=== PATIENT | female | born 1980 | race Caucasian/White ===

== ENCOUNTER 2017-08-06 21:02 | Emergency (ER) | payer OTHER ==
[2015-03-19 08:56] VITALS: Wt 74.4 kg
[~2017-08-06 21:02] MED LIST: BENZ57AE; DOCU240C67 PO; IBUP-1784 PO; IBUP600T22 PO; IBUP800T37 PO; LANO56CR3 TP; Lanolin TP; METH0.2T6 PO; MULT-1038 PO; NORG1TAB82 PO; PNV1TABL70 PO; TRAM-420 PO; TRAM-627 PO
--- NOTE | 2017-08-06 21:11 | ER Report ---
History and Physical Time Seen By MD: 21:11 HPI/ROS CHIEF COMPLAINT: Vaginal prolapse HISTORY OF PRESENT ILLNESS: 36 year-old female G2, P2 at the end of her menstrual cycle is using a menstrual cap. Tonight she noted some excess tissue hanging out. She had her take a look and they became concerned. Patient presents to the ER. She denies abdominal pain, vaginal discharge, urinary burning, fever, chills or discomfort. Allergies: Coded Allergies: adhesive (Verified Allergy, Intermediate, RASH, HIVES, 04/24/15) povidone-iodine (Verified Allergy, Intermediate, RASH, HIVES, 04/24/15) soap (Verified Allergy, Intermediate, RASH, HIVES, 04/24/15) codeine (Verified Allergy, Mild, 05/29/09) diazepam (Verified Allergy, Mild, 12/30/16) hydrocodone bit (Verified Allergy, Mild, NAUSEA/VOMITING, 12/19/12) oxycodone HCl (Verified Allergy, Mild, NAUSEA/VOMITING, 12/19/12) Home Meds Active Scripts Ibuprofen (IBUPROFEN) 800 Mg Tablet, 1 TAB PO Q8H Y for pain, #30 TAB 0 Refills Prov:GILBERTO RIVERA MD 01/26/17 Discontinued Scripts Tramadol Hcl (TRAMADOL HCL) 50 Mg Tablet, 50-100 MG PO Q4-6H Y for pain, #20 TAB 0 Refills Prov:GILBERTO RIVERA MD 01/26/17 Reviewed Nurses Notes: Yes Old Medical Records Reviewed: Yes Hx Smoking: No Smoking Status: Never Smoker Exposure to Second Hand Smoke?: No Hx Substance Use Disorder: No Hx Alcohol Use: No Constitutional Vital Sign - Last 24 Hours 08/06/17 08/06/17 08/06/17 08/06/17 21:14 21:15 21:17 21:32 Pulse 60 66 63 Resp 16 B/P (MAP) 114/71 114/71 (85) Pulse Ox 98 98 99 O2 Delivery Room Air 08/06/17 08/06/17 08/06/17 08/06/17 21:47 22:02 22:17 22:22 Pulse 67 63 67 Pulse Ox 98 98 98 98 08/06/17 22:55 Resp 16 B/P (MAP) 102/65 (77) Pulse Ox 98 O2 Delivery Room Air Physical Exam General appearance: Respiratory: Chest is non tender, lungs are clear to auscultation. Cardiac: Regular rate and rhythm Abdomen, bowel sounds are intact. Abdomen is soft, no masses or tenderness Pelvic: Normal vaginal mucosa with slight dark blood tinging. Cervix appears normal. There is no excess tissue or masses noted. On standing. Patient notes that tissue is hanging out. I think her uretera appears partially prolapsed. There is also a generous left labium minora hanging down. There is a tag of tissue noted on the posterior vaginal wall from her repair of a posterior vaginal wall tear during delivery. DIFFERENTIAL DIAGNOSIS: After history and physical exam differential diagnosis was considered for urethral prolapse, cystocele, rectocele. Medical Decision Making ED Course/Re-evaluation ED Course Patient was admitted to an examination room. H&P was done. The differential diagnoses was considered. On clinical examination. Patient has a normal examination. Patient advised to follow-up with Dr. Da Silva for evaluation. Decision to Disposition Date: Aug 06, 2017 Decision to Disposition Time: 22:49 Depart Departure Latest Vital Signs Vital Signs Date Time Temp Pulse Resp B/P (MAP) Pulse Ox O2 Delivery O2 Flow Rate FiO2 08/06/17 22:55 16 102/65 (77) 98 Room Air 08/06/17 22:17 67 Core Temperature (Celsius): 37.00 Impression: Primary Impression: Urethral prolapse Condition: Improved Disposition: HOME OR SELF-CARE Referrals: DEV DA SILVA MD (PCP) Patient Instructions: GENERAL ER DISCHARGE INSTRUCTIONS Additional Instructions: Follow-up with Dr. Da Silva for an evaluation RICK GONZALEZ DO Aug 06, 2017 21:11
[2017-08-06 22:55] VITALS: BP 102/65
== END 2017-08-06 22:55 | disposition home or self-care (01) ==
LOC: ER 21:29
DX: N81.0 Urethrocele (principal)
CPT/HCPCS: 99284

== ENCOUNTER → 2017-08-19 | Outpatient (REF) | payer OTHER ==
[2015-03-19 08:56] VITALS: BMI 34.6
== END ==
LOC: ZZSENDIN 13:01
PROVIDERS: ATTEND Obstetrics & Gynecology
DX: N92.5 Other specified irregular menstruation (principal)
CPT/HCPCS: 83520; 84146; 84443

== ENCOUNTER → 2017-11-14 | Outpatient (CLI) | payer OTHER ==
[2015-03-19 08:56] VITALS: BMI 34.6
== END ==
LOC: LAB 14:46
PROVIDERS: ATTEND Obstetrics & Gynecology Reproductive Endocrinology
DX: Z32.00 Encounter for pregnancy test, result unknown (principal)
CPT/HCPCS: 36415; 82670; 84144; 84702

== ENCOUNTER → 2017-11-16 | Outpatient (CLI) | payer OTHER ==
[2015-03-19 08:56] VITALS: BMI 34.6
== END ==
LOC: LAB 14:43
PROVIDERS: ATTEND Obstetrics & Gynecology Reproductive Endocrinology
DX: O09.811 Supervision of pregnancy resulting from assisted reproductive technology, first trimester (principal); Z13.29 Encounter for screening for other suspected endocrine disorder
CPT/HCPCS: 36415; 84443; 84702

== ENCOUNTER → 2017-11-28 | Outpatient (CLI) | payer OTHER ==
[2015-03-19 08:56] VITALS: BMI 34.6
[~2017-11-28] MED LIST changes: +AZIT-17 PO; +PREN-162 PO
[2017-11-28 15:51] LABS: PLATELET COUNT, AUTOMATED 256 K/uL (150-450)
== END ==
LOC: LAB 15:33
PROVIDERS: ATTEND Obstetrics & Gynecology
DX: Z34.91 Encounter for supervision of normal pregnancy, unspecified, first trimester (principal); R82.79 Other abnormal findings on microbiological examination of urine
CPT/HCPCS: 36415; 81001; 85025; 86592; 86762; 86850; 86900; 86901; 87088; 87340

== ENCOUNTER → 2017-12-01 | Outpatient (CLI) | payer OTHER ==
[2015-03-19 08:56] VITALS: BMI 34.6
[~2017-12-01] MED LIST changes: +PROG200C VA
== END ==
LOC: LAB 15:43
PROVIDERS: ATTEND Obstetrics & Gynecology
DX: O09.299 Supervision of pregnancy with other poor reproductive or obstetric history, unspecified trimester (principal)
CPT/HCPCS: 36415; 84144

== ENCOUNTER → 2017-12-13 | Outpatient (CLI) | payer OTHER ==
[2015-03-19 08:56] VITALS: BMI 34.6
== END ==
LOC: LAB 09:53
PROVIDERS: ATTEND Obstetrics & Gynecology
DX: O09.299 Supervision of pregnancy with other poor reproductive or obstetric history, unspecified trimester (principal)
CPT/HCPCS: 36415; 84144

== ENCOUNTER → 2018-03-09 | Outpatient (CLI) | payer OTHER ==
[2015-03-19 08:56] VITALS: BMI 34.6
[~2018-03-09] MED LIST changes: +AMOX-559 PO; +CHOL10005 PO; +FLUT16SP19 NS
--- NOTE | 2018-03-09 15:56 | RADIOLOGY IMAGING REPORT ---
FACILITY: [facility] PATIENT NAME: Florina Ballard : 1980 MR: [id number] V: [id number] EXAM DATE: ORDERING PHYSICIAN: GILBERTO RIVERA TECHNOLOGIST: Location: [facility] - [place], [place] Patient: Florina Ballard : 1980 Visit/Account:[id number] Date of Sevice: 03/09/2018 OB ANATOMICAL SURVEY HISTORY: anatomical survey COMPARISON: Comparison made to previous study of 01/10/2018 FINDINGS: Intrauterine gestations: 1 presentation: Transverse heart rate: 144 bpm Amniotic fluid volume: JOYA 19.6 cm; Largest amniotic fluid pocket 5.5 cm Placenta: Posterior and fundal No placenta previa or retroplacental hemorrhage. Uterus: Gravid, otherwise normal Maternal adnexa: Negative Cervix: 4.4 cm. Closed Gestational Parameters: BPD: 5.3 cm; 22 weeks/ 2 days HC: 19.3 cm; 21 weeks/ 4 days AC: 16.9 cm; 22 weeks/ 0 days FL: 3.7 cm; 21 weeks/ 5 days Average ultrasound age (AUA): 22 weeks/ 0 days Estimated weight (EFW): 451 grams +/- 66 grams. Fetus is in the 90th percentile based on LMP Anatomic Survey: Intracranial structures, 4-chamber heart, stomach, kidneys, urinary bladder, spine, 3-vessel cord and cord insertion are unremarkable. Two upper and two lower extremities visualized. IMPRESSION: IUP of 22 weeks zero days. EMILY of 07/13/2018. This correlates eight days ahead of the initial ultraso und on 12/13/2017 which had an EMILY calculated at 07/21/2018 Report Dictated By: Woodrow Awan MD at 03/09/2018 3:46 PM Report E-Signed By: Woodrow Awan MD at 03/09/2018 3:53 PM ALEJANDRAN:NICK
== END ==
LOC: RAD 10:14
PROVIDERS: ATTEND Obstetrics & Gynecology
DX: Z02.9 Encounter for administrative examinations, unspecified (principal)

== ENCOUNTER 2018-04-27 09:33 | Emergency (ER) | payer OTHER ==
[2015-03-19 08:56] VITALS: Wt 95.7 kg
[~2018-04-27 09:33] MED LIST changes: +BUTA1TAB14 PO
[2018-04-27] MEDS ORDERED: CEPH500T7 PO (10:48)
--- NOTE | 2018-04-27 10:58 | History & Physical ---
History of Present Illness Age of Patient: 37 Para or TPAL: 2 Estimated Gestational Age: 27 Chief Complaint Groin pain/abscess History of Present Illness Pt is a 37 y/o @ approximately 27 weeks gestation who presents to the ED with a cheif complaint of groin/leg pain. Pt reports she started to notice pain last night on her right thigh. Reports this has progressively gotten bigger and now is having difficulty walking or sitting with her legs together. Pt reports that she was able to get some drainage from her leg earlier this morning. Reports that she hasn't been able to get other fluid or discharge out since. Has had no fevers or chills. Swelling around the infected area. Pt reports good movement. No vaginal bleeding. No loss of amniotic fluid. History Obstetrical History: X 2 Past Medical History: Non contributory. Allergies: Coded Allergies: adhesive (Verified Allergy, Intermediate, RASH, HIVES, 04/24/15) povidone-iodine (Verified Allergy, Intermediate, RASH, HIVES, 04/24/15) soap (Verified Allergy, Intermediate, RASH, HIVES, 04/24/15) codeine (Verified Allergy, Mild, 05/29/09) diazepam (Verified Allergy, Mild, 12/30/16) hydrocodone bit (Verified Allergy, Mild, NAUSEA/VOMITING, 12/19/12) oxycodone HCl (Verified Allergy, Mild, NAUSEA/VOMITING, 12/19/12) Social History: , present and supportive. Lives with and 2 year old daughter. No noxious habits. Family History: Blood clots paternal grandmother FH: heart disease maternal grandma maternal grandfather FH: juvenile rheumatoid arthritis BROTHER OR SISTER FH: ovarian cancer MOTHER Osteoporosis FATHER Med Rec Home Meds Active Scripts Cephalexin 500 Mg Tab (KEFLEX 500 MG TAB) 500 Mg Tablet, 500 MG PO Q6H, #28 TAB 0 Refills Prov:KRISTY GIL DO 04/27/18 Butalb/Acetaminophen/Caff 50-325-40 Mg (FIORICET 50-325-40) 1 Each Tablet, 1-2 TAB PO Q6H PRN for headache, #30 TAB 1 Refill Prov:GILBERTO RIVERA MD 04/11/18 Fluticasone Prop 50 Mcg Ns (FLONASE 50 MCG NS) 16 Gm [place].susp, 2 SPRAYS NS QDAY, #1 BOT 1 Refill Prov:GILBERTO RIVERA MD 01/18/18 Reported Medications Cholecalciferol (Vitamin D3) (VITAMIN D3) 1,000 Unit Tablet, 1000 UNIT PO, TAB 02/07/18 Vit/Iron Fumarate/Fa ( TABLET) 1 Each Tablet, 1 EACH PO 11/28/17 Review of Systems All Systems Reviewed/Normal: Yes, Except as Noted Constitutional: No Fever, No Weight Loss, No Weight Gain, No Chills, No Night Sweats, No Other Neurological: No Syncope, No Confusion, No Weakness, No Dizziness, No Slurred Speech, No Other ENT: No Hearing Loss, No Sinus Congestion, No Sore Throat, No Ear Ache, No Tinnitus, No Other Cardiovascular: No Chest Pain, No Palpitations, No Orthostatic Hypotension, No Other Respiratory: No Shortness of Breath, No Cough, No Wheezing, No Other Gastrointestinal: No Nausea, No Vomiting, No Diarrhea, No Dysphagia, No Constipation, No Early Satiety, No Hematemesis, No Hematochezia, No Melena, No Abdominal Pain, No Other Genitourinary: Other (as noted in hpi) Musculoskeletal: Pain Psychiatric: No Depression, No Anxiety, No Other Exam General Exam Vital Signs Vital Signs Date Time Temp Pulse Resp B/P (MAP) Pulse Ox O2 Delivery O2 Flow Rate FiO2 04/27/18 10:02 98.3 89 18 132/83 95 Room Air General Apperance: Alert/Awake/No Acute Distress Neuro: No Gross deficits Eyes: Normal Extraocular Movement & Vison ENT: Normal Abdomen: Soft, Non-Tender, Non-Distended, Gravid - Non-Tender, Other Musculoskeletal: Other (area of induration approximately 2X 4 cm on the left thigh close to labia majora, minimal purulent discharge expressed. erythema around indurated area.) Extremities: No Cyanosis,Clubbing or Edema Integumentary: Skin Intact without Lesions or Rash Psychological: Alert & Oriented X3, Appropriate Mood & Affect Fetus Heart Tones: 155 Medical Decision Making Pre-Admit Course Medical Record Review: Yes VTE Prophylasis: Adult Deep Vein Thrombosis/Pulmonary: No Assessment and Plan QUALITY ASSURANCE GROUP LEADER Assessment: Stable Problems: (1) Groin abscess Assessment & Plan: Bedside incision and drainage with copious irrigation performed. Pt to be discharged home with Keflex. Follow up with [facility]. Bleeding and infection precautions given. KRISTY GIL DO Apr 27, 2018 10:58
[2018-04-27] MEDS ORDERED: CEPHALEXIN MONO 500 MG CAP PO ONE (11:10)
--- NOTE | 2018-04-27 11:17 | ER Report ---
History and Physical Time Seen By MD: 11:14 Hx. of Stated Complaint: PT BELIEVES SHE HAS AN ABSCESS ON THE INSIDE OF HER LEFT GROIN. HPI/ROS This patient is 27 weeks presents to the emergency department with an early abscess to her right inner thigh. No fever chills. No abdominal pain, no chest pain, and states she feels baby moving well. No other complaints other than the abscess in her thigh. Remainder of the 14 system rev: Yes Allergies: Coded Allergies: adhesive (Verified Allergy, Intermediate, RASH, HIVES, 04/24/15) povidone-iodine (Verified Allergy, Intermediate, RASH, HIVES, 04/24/15) soap (Verified Allergy, Intermediate, RASH, HIVES, 04/24/15) codeine (Verified Allergy, Mild, 05/29/09) diazepam (Verified Allergy, Mild, 12/30/16) hydrocodone bit (Verified Allergy, Mild, NAUSEA/VOMITING, 12/19/12) oxycodone HCl (Verified Allergy, Mild, NAUSEA/VOMITING, 12/19/12) Home Meds Active Scripts Cephalexin 500 Mg Tab (KEFLEX 500 MG TAB) 500 Mg Tablet, 500 MG PO Q6H, #28 TAB 0 Refills Prov:KRISTY GIL DO 04/27/18 Butalb/Acetaminophen/Caff 50-325-40 Mg (FIORICET 50-325-40) 1 Each Tablet, 1-2 TAB PO Q6H PRN for headache, #30 TAB 1 Refill Prov:GILBERTO RIVERA MD 04/11/18 Fluticasone Prop 50 Mcg Ns (FLONASE 50 MCG NS) 16 Gm [place].susp, 2 SPRAYS NS QDAY, #1 BOT 1 Refill Prov:GILBERTO RIVERA MD 01/18/18 Reported Medications Cholecalciferol (Vitamin D3) (VITAMIN D3) 1,000 Unit Tablet, 1000 UNIT PO, TAB 02/07/18 Vit/Iron Fumarate/Fa ( TABLET) 1 Each Tablet, 1 EACH PO 11/28/17 Reviewed Nurses Notes: Yes Old Medical Records Reviewed: Yes Hx Smoking: No Smoking Status: Never Smoker Exposure to Second Hand Smoke?: No Hx Substance Use Disorder: No Hx Alcohol Use: No Constitutional Vital Sign - Last 24 Hours 04/27/18 10:02 Temp 98.3 Pulse 89 Resp 18 B/P (MAP) 132/83 Pulse Ox 95 O2 Delivery Room Air Physical Exam General Appearance: The patient is alert, has no immediate need for airway protection and no current signs of toxicity. Eyes: Pupils equal and round no injection. Respiratory: Chest is non tender, lungs are clear to auscultation. Cardiac: regular rate and rhythm Gastrointestinal: Abdomen is gravis and non tender, FHTs in 150s Skin: Small fluctuant abscess to right inner thigh Medical Decision Making ED Course/Re-evaluation ED Course Right sided thigh abscess I&D'd in the ED by Dr. Gil. See Dr. Gil's note. Patient otherwise without complaints. Will d/c with RX for Keflex. Decision to Disposition Date: Apr 27, 2018 Decision to Disposition Time: 11:15 Depart Departure Latest Vital Signs Vital Signs Date Time Temp Pulse Resp B/P (MAP) Pulse Ox O2 Delivery O2 Flow Rate FiO2 04/27/18 10:02 98.3 89 18 132/83 95 Room Air Core Temperature (Celsius): 37.00 Impression: Primary Impression: Groin abscess Condition: Improved Disposition: HOME OR SELF-CARE Referrals: GILBERTO RIVERA MD (PCP) New Scripts Cephalexin 500 Mg Tab (KEFLEX 500 MG TAB) 500 Mg Tablet 500 MG PO Q6H, #28 TAB 0 Refills Prov: KRISTY GIL DO 04/27/18 Patient Instructions: Abscess (ED) RODERICK RODRIGUEZ MD Apr 27, 2018 11:17
[2018-04-27 11:20] VITALS: BP 108/61
[2018-04-27] MEDS ORDERED: CEPHALEXIN 500 MG CAP TH 2 CAP/BOTTLE PO SCH (12:00)
[2018-04-27] MEDS ORDERED: CEPHALEXIN 500 MG CAP TH 2 CAP/BOTTLE PO ONE (21:00)
== END 2018-04-27 11:28 | disposition home or self-care (01) ==
LOC: ER 10:14
DX: O26.892 Other specified pregnancy related conditions, second trimester (principal); L02.214 Cutaneous abscess of groin; Z3A.27 27 weeks gestation of pregnancy
CPT/HCPCS: 99284

== ENCOUNTER → 2018-05-02 | Outpatient (CLI) | payer OTHER ==
[2015-03-19 08:56] VITALS: BMI 34.6
[~2018-05-02] MED LIST changes: +CEPH500T7 PO
[2018-05-02 10:10] LABS: PLATELET COUNT, AUTOMATED 275 K/uL (150-450)
== END ==
LOC: LAB 08:24
PROVIDERS: ATTEND Obstetrics & Gynecology
DX: O09.529 Supervision of elderly multigravida, unspecified trimester (principal)
CPT/HCPCS: 36415; 82950; 85025

== ENCOUNTER → 2018-06-21 | Outpatient (CLI) | payer OTHER ==
[2015-03-19 08:56] VITALS: BMI 34.6
[~2018-06-21] MED LIST changes: +CALC-515 PO; +TRIA15OI20 TP
== END ==
LOC: LAB 07:55
PROVIDERS: ATTEND Obstetrics & Gynecology
DX: O09.523 Supervision of elderly multigravida, third trimester (principal); Z36.85 Encounter for antenatal screening for Streptococcus B
CPT/HCPCS: 87081

== ENCOUNTER 2018-07-06 22:28 | Outpatient (CLI) | payer OTHER ==
[2015-03-19 08:56] VITALS: Ht 172.7 cm
[2018-07-06] MEDS ORDERED: LR(*) 1000 ML BAG 1,000 ML IV PRN (22:29)
[2018-07-06] MEDS ORDERED: OXYTOCIN 30 UNIT/D5LR 500 ML 500 ML IV PRN (22:29)
[2018-07-06 22:49] VITALS: BP 128/73
[2018-07-06 23:20] VITALS: BP 128/71
== END 2018-07-06 23:45 | disposition home or self-care (01) ==
LOC: UNDOADMOB 22:28 → L&D 22:28 → OB 22:28 → INTOOBSV 22:28 → UNDODISOB 23:45 → L&D 23:45 → EDSTATUS 07-20 07:31
PROVIDERS: ATTEND Obstetrics & Gynecology
DX: O26.893 Other specified pregnancy related conditions, third trimester (principal); Z3A.37 37 weeks gestation of pregnancy
CPT/HCPCS: 59025; 84112; G0378; G0379; 99213

== ENCOUNTER 2018-07-17 20:45 | Inpatient (IN) | payer OTHER ==
[~2018-07-17] VITALS: Ht 172.7 cm; Wt 90.7 kg
[2018-07-17] MEDS ORDERED: LR(*) 1000 ML BAG 1,000 ML IV PRN (20:47)
[2018-07-17] MEDS ORDERED: OXYTOCIN 30 UNIT/D5LR 500 ML 500 ML ONE (21:13)
[2018-07-17] MEDS ORDERED: FAMOTIDINE(*) 20MG/50ML PREMIX 50 ML IVPB PRN ×2 (21:19→21:30)
[2018-07-17] MEDS ORDERED: ceFAZolin(*) 2GM/D5W 50ML 50 ML IVPB PRN (21:19)
[2018-07-17] MEDS ORDERED: OXYTOCIN 30 UNIT/D5LR 500 ML 500 ML IV PRN (21:19)
[2018-07-17] MEDS: LR(*) 1000 ML BAG 1,000 ML IV SCH ×2 (21:19→22:13)
[2018-07-17] MEDS ORDERED: FLUSH 10 ML SYR IVP PRN (21:20)
[2018-07-17] MEDS ORDERED: METOCLOPRAMIDE 10 MG/2 ML SDV IVP PRN (21:20)
[2018-07-17] MEDS ORDERED: cefOXitin/DEX(*) 2GM/50ML PREM 50 ML IVPB PRN (21:20)
[2018-07-17] MEDS ORDERED: LIDOCAINE/SOD BICARB 8.4% SYR SC PRN (21:20)
[2018-07-17] MEDS ORDERED: fentaNYL CITR 100 MCG/2 ML AMP IVP PRN (21:20)
[2018-07-17] MEDS ORDERED: LIDOCAINE 1% LOCAL 300 MG/30ML INJ PRN (21:20)
[2018-07-17] MEDS ORDERED: ONDANSETRON 4 MG/2 ML VIAL IVP PRN (21:30)
[2018-07-17] MEDS ORDERED: ACETAMINOPHEN 500 MG TAB PO PRN (21:30)
[2018-07-17] MEDS ORDERED: CALCIUM CARBONATE 500 MG CHEW PO PRN (21:30)
[2018-07-17] MEDS ORDERED: LIDO/EPI 2% MPF 1:200,000 20ML EPI PRN (21:35)
[2018-07-17] MEDS ORDERED: BUPIVACAINE 0.25% MPF INJ EPI PRN (21:35)
[2018-07-17] MEDS ORDERED: PENICILLIN G 5 MILLUN/100 ML 100 ML IVPB ONE (21:35)
[2018-07-17] MEDS ORDERED: BUPIVACAINE 0.5% INJ 30ML VIAL EPI PRN (21:35)
[2018-07-17] MEDS ORDERED: fentaNYL CITR 100 MCG/2 ML AMP IT PRN (21:35)
[2018-07-17] MEDS ORDERED: LIDOCAINE/PF 2% 200MG/10ML AMP 200 MG/10 ML AMPUL EPI PRN (21:35)
[2018-07-17] MEDS ORDERED: ePHEDrine 25 MG/5 ML DISP.SYR IVP PRN (21:35)
[2018-07-17] MEDS ORDERED: FENTANYL/ROPIVACAINE 100 ML BAG EPI PRN (21:35)
[2018-07-17] MEDS ORDERED: EPIDURAL KEYS XX PRN (21:35)
[2018-07-17 21:38] LABS: PLATELET COUNT, AUTOMATED 258 K/uL (150-450)
[2018-07-17 22:00] VITALS: BP 126/72; Ht 172.7 cm; Wt 90.7 kg
--- NOTE | 2018-07-17 22:48 | History & Physical ---
History of Present Illness EDC per U/S: Jul 21, 2018 Estimated Gestational Age: 39.2 Chief Complaint Labor History of Present Illness 37yo at 39w2d presents in spontaneous labor. She denies vaginal bleeding or loss of fluid. Positive movement. More regular contractions this afternoon and was 5cm on arrival. care by IMG. complicated by AMA with a normal [id number] and reassuring anatomical ultrasound. She is GBS positive. History Patient's Blood Type: AB Positive Rubella Status: Immune Group B Strep Screen: Positive Obstetrical History: G1: 40wk G2: 38wk G3: 8wk ectopic G4: 9wk SAB G5: Current Past Medical History: See PNR Allergies: Coded Allergies: adhesive (Verified Allergy, Intermediate, RASH, HIVES, 04/24/15) povidone-iodine (Verified Allergy, Intermediate, RASH, HIVES, 04/24/15) soap (Verified Allergy, Intermediate, RASH, HIVES, 04/24/15) codeine (Verified Allergy, Mild, 05/29/09) diazepam (Verified Allergy, Mild, 12/30/16) hydrocodone bit (Verified Allergy, Mild, NAUSEA/VOMITING, 12/19/12) oxycodone HCl (Verified Allergy, Mild, NAUSEA/VOMITING, 12/19/12) Social History: , present and supportive. Lives with and 2 children. No T/E/D. Family History: Blood clots paternal grandmother FH: heart disease maternal grandma maternal grandfather FH: juvenile rheumatoid arthritis BROTHER OR SISTER FH: ovarian cancer MOTHER Osteoporosis FATHER Med Rec Home Meds Active Scripts Triamcinolone Acetonide 0.1% Oint 15 Gm Tube (TRIAMCINOLONE ACETONIDE 0.1% 15 GM TUBE) 15 Gm Oint...g., 15 GM TP BID, #1 TUBE 0 Refills Prov:GILBERTO RIVERA MD 06/07/18 Reported Medications Calcium Carbonate (TUMS) 200 Mg Tab.chew, 200 MG PO, TAB.CHEW 05/18/18 Cholecalciferol (Vitamin D3) (VITAMIN D3) 1,000 Unit Tablet, 1000 UNIT PO, TAB 02/07/18 Vit/Iron Fumarate/Fa ( TABLET) 1 Each Tablet, 1 EACH PO 11/28/17 Review of Systems Constitutional: No Fever Neurological: No Syncope Eyes: No Vision Change Cardiovascular: No Chest Pain Respiratory: No Shortness of Breath Gastrointestinal: No Nausea, No Vomiting, No Diarrhea Genitourinary: No Dysuria Musculoskeletal: No Pain Psychiatric: No Depression, No Anxiety Exam General Exam Vital Signs VS reviewed General Apperance: Alert/Awake/No Acute Distress Neuro: No Gross deficits Eyes: Normal Extraocular Movement & Vison Cardiovascular: Regular Rate and Rhythm Respiratory: No Respiratory Distress Abdomen: Gravid - Non-Tender : Normal Musculoskeletal: No Weakness/Pain Extremities: No Cyanosis,Clubbing or Edema Integumentary: Skin Intact without Lesions or Rash Psychological: Alert & Oriented X3, Appropriate Mood & Affect Cervical Dialation: 6 Cervical Effacement (%): 70 Cervical Consistency: Soft Cervical Position: Mid Station: -2 Presentation: Vertex Uterine Contractions(Q min): 3 Uterine Contraction Strength: Moderate UC Resting Tone: Soft Fetus Feeling Movement?: Yes FHT Category: I Medical Decision Making Data Points Result Diagram: 07/17/182128 Pre-Admit Course Medical Record Review: Yes VTE Prophylasis: Adult Deep Vein Thrombosis/Pulmonary: No Pharmacological Contraindicati: Surgical Contraindication Mechanical Contraindications: Pt at Low Risk for VTE Assessment and Plan Problems: (1) Spontaneous onset of labor Assessment & Plan: 37yo at 39w2d presents in spontaneous labor. GBS pos itive, PCN protocol is started. Epidural in. Anticipate . (2) 39 weeks gestation of GILBERTO RIVERA MD Jul 17, 2018 22:48
--- NOTE | 2018-07-17 22:59 | Anesthesia OB Pre-Anes Eval ---
History of Present Illness Anesthesia Start Date: Jul 17, 2018 Anesthesia Start Time: 21:40 OB Anesthesia Diagnosis: spontaneous labor Complications: None known EDC: Jul 21, 2018 : 5 Para: 2 Pain Ratin Heart Tones: WNL Result Diagram: 07/17/182128 Height (Inches): 68 Weight (Pounds): 211 BMI (kg/m2): 38 Past Medical History Medical History: no pertinent history Surgical History: other (Retained placenta) Previous Anesthesia: general, epidural Attended Childbirth Classes?: No Hx Anesthesia Reactions: No Hx Family Anesthesia Reaction: No Home Meds Active Scripts Triamcinolone Acetonide 0.1% Oint 15 Gm Tube (TRIAMCINOLONE ACETONIDE 0.1% 15 GM TUBE) 15 Gm Oint...g., 15 GM TP BID, #1 TUBE 0 Refills Prov:GILBERTO RIVERA MD 06/07/18 Reported Medications Calcium Carbonate (TUMS) 200 Mg Tab.chew, 200 MG PO, TAB.CHEW 05/18/18 Cholecalciferol (Vitamin D3) (VITAMIN D3) 1,000 Unit Tablet, 1000 UNIT PO, TAB 02/07/18 Vit/Iron Fumarate/Fa ( TABLET) 1 Each Tablet, 1 EACH PO 11/28/17 Allergies: Coded Allergies: adhesive (Verified Allergy, Intermediate, RASH, HIVES, 04/24/15) povidone-iodine (Verified Allergy, Intermediate, RASH, HIVES, 04/24/15) soap (Verified Allergy, Intermediate, RASH, HIVES, 04/24/15) codeine (Verified Allergy, Mild, 05/29/09) diazepam (Verified Allergy, Mild, 12/30/16) hydrocodone bit (Verified Allergy, Mild, NAUSEA/VOMITING, 12/19/12) oxycodone HCl (Verified Allergy, Mild, NAUSEA/VOMITING, 12/19/12) Anesthesia OB ROS Neurological: No migraines/headaches, No seizures, No neuropathy Eyes ROS: other (glasses) ENT: Denies Tooth caps, Denies Loose teeth, Denies Chipped teeth, Denies Dentures, Denies Bridges, Denies Retainers, Denies Veneers, Denies Implants, D enies Tongue ring; Other Pulmonary: No asthma, No smoker (pks/day/yrs) Airway Class: ll Cardiovascular ROS: No edema, No arrhythmia GI ROS: clear liquids Last Solids Date: Jul 17, 2018 Last Solids Time: 17:00 ROS: No Herpes, No STD(s), No Liver Disease, No Renal Disease Endocrine ROS: No diabetes, No gestational diabetes, No thyroid disorder Musculoskeletal ROS: No low back pain, No low back injury, No scoliosis ASA Classification: 2 Assessment and Plan Anesthesia Plan: CSE Assessment Past Medical, Surgical, Family and Obstetric Histories reviewed. Please see ACOG chart. Epidural anesthesia risks, complications and benefits explained to patient's satisfaction for labor and vaginal delivery and/or section. General anesthesia risks and benefits explained to patient's satisfaction. Reviewed with pt., her last epidural experience. No problems noted. PING PEREZ CRNA Jul 17, 2018 22:59
--- NOTE | 2018-07-17 23:05 | Procedure Note ---
Anesthetic Placement Note Anesthesia Plan: CSE Permit for Anesthesia Signed: Yes Anesthesia Technique: Patient Sitting Anesthesia Prep: Chlorhexidine Interspace: L 3-4 Local Anesthetic: 1% Lidocaine, 25 Gauge Needle Amount Local - cc's: 2 Anesthesia Needle: 17g Touhy/Schliff Anesthesia Attempts: 1 Loss of Resistance: Air Depth of BROOK (cm): 6 Epidural Needle Placement: No CSF, No Blood, No Parasthesia Intrathecal Needle: 27 Gauge Pencan Cerebral Spinal Fluid: Yes, Clear Catheter Insertion (cm): 8 Catheter Type: Cruz - Spring Wound Epidural Dressing: Tegaderm, Tape, Adhesive [place] Anesthesia Tray: Lot Number ([id number]), Expiration Date (2019-05-05), Reference Number ([id number]) Anesthesia Medications: Intrathecal Dose: mcg Fentanyl (15), mg Marcaine MPF (1.75), Time (2156) Epidural Test Dose: 1.5 Lido/Epi (1:200,000), Dose - mL (3), Time (2220), Negative Epidural Loading Dose: 0.2% Ropivicaine, With Fentanyl 2mcg/ml, Dose - ml (5), Time (2221) Epidural Infusion: 0.2% Ropivicaine, With Fentanyl 2mcg/ml, Start Time: (2221) Epidural Pump Setting: Bolus Dose - mL (5), Lockout - Minutes (20), Maintenance Rate - mL/hr (6), Maximum per Hour - mL (21) Complications: None Comment: Pt. became comfortable within 5 minutes of intrathecal. At 2214, she c/o "lightheaded". Ephedrine 10 mg IVP and assisted pt. to turn more onto rt side. PING PEREZ CRNA Jul 17, 2018 23:04
--- NOTE | 2018-07-18 00:40 | Anesthesia Progress Note ---
Progress/Maintenance Anesthesia Note Date: Jul 18, 2018 Anesthesia Note Time: 00:30 Pain Intensity: 0 Pump: On Pump Rate (ML/HR): 6 Sensory Level: T-12 Motor Level: Bending Knees-Bilateral, Other (left leg heavier than rt.) Dilatation: 5 Position: Right, Tilt Assessment and Plan Assessment Remains comfortable and no further medication has been given. PING PEREZ CRNA Jul 18, 2018 00:40
[2018-07-18] MEDS ORDERED: OXYTOCIN 30 UNIT/D5LR 500 ML 500 ML IV PRN (01:30)
--- NOTE | 2018-07-18 01:38 | Anesthesia Progress Note ---
Progress/Maintenance Anesthesia Note Date: Jul 18, 2018 Anesthesia Note Time: 01:30 Pain Intensity: 5 Pump: On Pump Rate (ML/HR): 6 Sensory Level: t-12 Motor Level: Other (States her left side is "") Dilatation: 9 Position: Right, Tilt Drug Bolus: 0.5% Marcaine (5 ml), Other (Fentenyl 85 mcgs) Assessment and Plan Assessment Pt is feeling stronger contractions. Manual bolus given. PING PEREZ CRNA Jul 18, 2018 01:38
[2018-07-18] MEDS ORDERED: PENICILLIN G 2.5 MILLUN/100 ML 100 ML IVPB SCH (02:00)
--- NOTE | 2018-07-18 02:26 | Labor Progress Note ---
Labor Subjective Progress Notes Subjective Pt is comfortable with epidural. No concerns. Labor Objective Vital Signs Vital Signs Date Time Temp Pulse Resp B/P (MAP) Pulse Ox O2 Delivery O2 Flow Rate FiO2 07/17/18 22:00 98.2 70 16 126/72 (90) 94 Room Air Vaginal Discharge/Fluid?: Green Tinged Fluid Cervical Dialation: 10 Cervical Effacement (%): 100 Cervical Consistency: Soft Cervical Position: Mid Station: +2 Presentation: Vertex Uterine Contractions(Q min): 2 Uterine Contraction Strength: Strong UC Resting Tone: Soft Fetus FHT Category: I General Exam General Appearance: Alert/Awake/No Acute Distress : Normal Musculoskeletal: No Weakness/Pain Extremities: No Cyanosis,Clubbing or Edema Integumentary: Skin Intact without Lesions or Rash Psychological: Alert & Oriented X3, Appropriate Mood & Affect Other Result Diagram: 07/17/182128 Assessment and Plan Problems: (1) Spontaneous onset of labor Assessment & Plan: Pt is now complete. Second dose of PCN just completed and SROM revealed thick meconium fluid. Director Strategic Planning has been requested for [place]keefe. Will plan to push once Dr. Black is available. (2) 39 weeks gestation of GILBERTO RIVERA MD Jul 18, 2018 02:26
[2018-07-18] MEDS: LR(*) 1000 ML BAG 1,000 ML IV SCH (02:30)
--- NOTE | 2018-07-18 03:01 | OB Delivery Note ---
Delivery Note Vaginal Delivery Type: Spont. Vaginal Delivery Delivery Date: Jul 18, 2018 Delivery Time: 02:48 Estimated Gestational Age(wks): 39.3 Length of Labor Stage II (hrs): 0.5 Labor Stage III (minutes): 4 Delivery Anesthesia: Epidural Sex: Male Infant Weight (gms): 3368 (7#7.5oz) [place] Apgars: 1 Minute (8), 5 Minute (9) Estimated Blood Loss: 200 Delivery Complications: Nuchal Cord, Other (Meconium stained fluid) Hydrotreater Operator in Attendence: GILBERTO Jolly MD Jul 18, 2018 03:01
[2018-07-18] MEDS ORDERED: GLYCERIN/WITCH HAZEL LEAF 1 PK TOP PRN (03:05)
[2018-07-18] MEDS ORDERED: BENZOCAINE 20% 60 ML BTL TP PRN (03:05)
[2018-07-18] MEDS ORDERED: HYDROCORTISONE 2.5% CR 30GM TB PR PRN (03:05)
[2018-07-18] MEDS ORDERED: LANOLIN OINT 7 GM TUBE TP PRN (03:05)
[2018-07-18] MEDS ORDERED: MAGNESIUM HYDROXIDE* 30ML UDCP PO PRN (03:05)
[2018-07-18] MEDS ORDERED: IBUP800T37 PO (03:05)
[2018-07-18] MEDS ORDERED: INFLUENZA VIRUS VAC 0.5ML SYR IM ONLY ONE (03:05)
--- NOTE | 2018-07-18 03:31 | Anesthesia Progress Note ---
Progress/Maintenance Anesthesia Note Date: Jul 18, 2018 Anesthesia Note Time: 03:00 Pain Intensity: 0 Pump: Off Sensory Level: T-12 Motor Level: Other (both legs are heavy) Dilatation: 10 Assessment and Plan Assessment No further medication was given. Pt. was able to push very well. Excellent tolerance of delivery. Empty syringe attached to epidural catheter and RN agrees to remove with ambulation. Patient instructed the first ambulation is to be with help of nursing staff. Instructed to preform deep knee bends at bedside before walking. Anesthesia Stop Day: Jul 18, 2018 Anesthesia Stop Time: 03:00 PING PEREZ CRNA Jul 18, 2018 03:31
--- NOTE | 2018-07-18 04:13 | DELIVERY NOTE ---
DELIVERY DATE: July 18, 2018 SURGEON: Serina Corbett MD ANESTHESIA: Epidural by Le Larson CRNA PREOPERATIVE DIAGNOSIS Intrauterine at 39 weeks and 3 days, presenting in spontaneous active labor. POSTOPERATIVE DIAGNOSES 1. Intrauterine at 39 weeks and 3 days, presenting in spontaneous active labor. 2. Delivery of a viable male at 0248 hours, weighing 3368 g or 7 pounds 7.5 ounces, with Apgars of 8 at one minute and 9 at five minutes. PROCEDURE Spontaneous vaginal delivery. ESTIMATED BLOOD LOSS 200 mL. INDICATIONS FOR PROCEDURE This patient is a 37-year-old 5, para 2-0-2-2, who presented initially at 39 weeks and 2 days in spontaneous active labor. At the time of presentation, she was 5, 70, and -2. She is group B strep positive, and therefore received penicillin protocol. She received an epidural for pain relief. Immediately after her second dose of penicillin, the patient was noted to be complete and 0 station with a bulging bag of water. An amniotomy was then performed, which revealed thick meconium-stained fluid. The master control technician was then asked to be present for delivery. Upon Dr. Black's arrival, we then started pushing. DESCRIPTION OF PROCEDURE The patient was noted to be complete, so was placed in dorsal lithotomy position and prepped and draped in the usual fashion for a vaginal delivery. She was asked to push, and over approximately five contractions was able to deliver the 's vertex spontaneously in the MEHDI position over an intact perineum. A nuchal cord was noted and relieved around the head. The anterior shoulder delivered easily, followed by the posterior shoulder. The remainder of the infant then easily delivered. The infant had spontaneous cry and spontaneous movement of all four extremities. The oropharynx and nasopharynx were bulb- suctioned, and the was passed to the mother's abdomen, where nursing personnel was in attendance. After one minute, the cord was clamped x2 and cut by the father of the baby. The baby was further evaluated at the [facility] by Dr. Black and the nurse. Cord blood was then obtained and passed off the table. Pitocin was started through the IV fluid to help firm the uterus. The placenta subsequently delivered spontaneously intact and was passed off the table. Examination of the cervix, vaginal vault, and perineum revealed no lacerations. The patient tolerated this procedure well and recovered in Labor and Delivery with the infant. GERTRUDIS
[2018-07-18] MEDS ORDERED: LR(*) 1000 ML BAG 1,000 ML ONE (04:21)
[2018-07-18 07:40] VITALS: BP 122/76
[2018-07-18] MEDS ORDERED: DIPHTH/TETANUS/ACEL. PERTUSSIS IM ONLY ONE (09:00)
[2018-07-18] MEDS ORDERED: MEASLES,MUMP,RUBELLA VAC 0.5ML SUBQ ONE (09:00)
[2018-07-18] MEDS: IBUPROFEN 800 MG TAB PO SCH ×2 (09:01→16:58)
[2018-07-18] MEDS: DOCUSATE CALCIUM 240 MG CAP PO SCH ×2 (09:01→21:00)
[2018-07-18 12:17] VITALS: BP 115/66
--- NOTE | 2018-07-18 15:18 | Anesthesia Post Eval Note ---
Anesthesia Post Eval Note Vital Signs Date Time Temp Pulse Resp B/P (MAP) Pulse Ox O2 Delivery O2 Flow Rate FiO2 07/18/18 12:17 97.2 81 18 115/66 (82) 07/18/18 07:40 95 07/17/18 22:00 Room Air Pt able to participate in Eval: Yes Cardiovascular Status: Satisfactory Respiratory Status: Satisfactory Pain Managment: Satisfactory PO Nausea/Vomiting: Satisfactory Temperature Management: Satisfactory Mental Status: Satisfactory, Alert, Oriented X3 Post-Op Hydration Status: Satisfactory, Tolerating PO Well, Voiding w/o Dif ficulty Anesthesia Type: CSE Anesthesia Tolerance: Tolerated procedure well without apparent anesthetic complications. LP site clear, no redness or edema. Denies headache or any residual paresthesia. Vital Signs Stable, Patient comfortable and condition stable. PING PEREZ CRNA Jul 18, 2018 15:18
[2018-07-18 16:54] VITALS: BP 113/73
--- NOTE | 2018-07-18 17:30 | OB/GYN Progress Note ---
OB Subjective Progress Notes Subjective Patient is generally doing well, but her cramping is significant and not well managed with ibuprofen. She has taken tramadol without issue in the past. OB Objective Physical Exam Vital Signs Date Time Temp Pulse Resp B/P (MAP) Pulse Ox O2 Delivery O2 Flow Rate FiO2 07/18/18 16:54 97.9 81 16 113/73 (86) 95 07/17/18 22:00 Room Air Intake and Output 07/18/18 07:00 Intake Total 2550 ml Output Total 600 ml Balance 1950 ml IV Total 2550 ml Output Urine Total 400 ml Estimated Blood Loss 200 ml # Voids 2 General Appearance: Alert/Awake/No Acute Distress Neurological: No Gross deficits Eyes: Normal Extraocular Movement & Vison Cardiovascular: Normal Rhythm & Peripheral Pulses, Regular Rate and Rhythm Respiratory: No Respiratory Distress, Clear to Auscultation Abdomen: Soft, Non-Tender, Non-Distended, Fundus Firm Musculoskeletal: No Weakness/Pain Extremities: No Cyanosis,Clubbing or Edema Integumentary: Skin Intact without Lesions or Rash Psychological: Alert & Oriented X3, Appropriate Mood & Affect Result Diagram: 07/17/182128 Assessment and Plan Problems: (1) care and examination immediately after delivery Status: Acute Assessment & Plan: PPD#0 s/p . Doing well. Will add Tramadol and re- evaluate tomorrow. GILBERTO RIVERA MD Jul 18, 2018 17:30
[2018-07-18] MEDS: traMADol 50 MG TAB PO PRN (17:31)
[2018-07-18 20:05] VITALS: BP 132/76
[2018-07-18 23:52] VITALS: BP 96/53
[2018-07-19] VITALS (8 sets, daily range): BP systolic 113–129; BP diastolic 63–78
[2018-07-19] MEDS: IBUPROFEN 800 MG TAB PO SCH ×3 (02:23→16:39)
[2018-07-19] MEDS: traMADol 50 MG TAB PO PRN ×3 (02:24→16:38)
--- NOTE | 2018-07-19 08:15 | OB/GYN Progress Note ---
OB Subjective Progress Notes Subjective Doing well. Pain controlled with oral medications. Tolerating regular diet. Ambulating. Voiding. Normal lochia. No preeclampsia symptoms. OB Objective Physical Exam Vital Signs Date Time Temp Pulse Resp B/P (MAP) Pulse Ox O2 Delivery O2 Flow Rate FiO2 07/19/18 07:47 124/70 (88) 07/19/18 07:12 97.2 71 18 Room Air 07/18/18 16:54 95 Intake and Output 07/19/18 07:00 Intake Total 400 ml Balance 400 ml Intake Oral 400 ml # Voids 1 General Appearance: Alert/Awake/No Acute Distress Neurological: No Gross deficits Eyes: Normal Extraocular Movement & Vison Cardiovascular: Normal Rhythm & Peripheral Pulses, Regular Rate and Rhythm Respiratory: No Respiratory Distress, Clear to Auscultation Abdomen: Soft, Non-Tender, Non-Distended, Fundus Firm Musculoskeletal: No Weakness/Pain Extremities: No Cyanosis,Clubbing or Edema Integumentary: Skin Intact without Lesions or Rash Psychological: Alert & Oriented X3, Appropriate Mood & Affect Result Diagram: 07/17/182128 Assessment and Plan Problems: (1) care and examination immediately after delivery Status: Acute Assessment & Plan: PPD#1 s/p . Routine orders. Unsure if she is ready to go home today, perhaps tomorrow. GILBERTO RIVERA MD Jul 19, 2018 08:15
[2018-07-19] MEDS ORDERED: TRAM-420 PO (08:16)
[2018-07-19] MEDS: DOCUSATE CALCIUM 240 MG CAP PO SCH ×2 (10:06→21:56)
[2018-07-20] MEDS: IBUPROFEN 800 MG TAB PO SCH ×2 (00:15→09:03)
[2018-07-20 04:23] VITALS: BP 119/64
--- NOTE | 2018-07-20 08:12 | OB/GYN Progress Note ---
OB Subjective Progress Notes Subjective Doing well. Pain controlled with oral medications. Tolerating regular diet. Ambulating. Voiding. Normal lochia. No preeclampsia symptoms. OB Objective Physical Exam Vital Signs Date Time Temp Pulse Resp B/P (MAP) Pulse Ox O2 Delivery O2 Flow Rate FiO2 07/20/18 04:23 97.5 67 16 119/64 (82) 07/19/18 16:40 96 Room Air Intake and Output 07/20/18 07:00 Intake Total 570 ml Balance 570 ml Intake Oral 570 ml # Voids 1 General Appearance: Alert/Awake/No Acute Distress Neurological: No Gross deficits Eyes: Normal Extraocular Movement & Vison Cardiovascular: Normal Rhythm & Peripheral Pulses, Regular Rate and Rhythm Respiratory: No Respiratory Distress, Clear to Auscultation Abdomen: Soft, Non-Tender, Non-Distended, Fundus Firm Musculoskeletal: No Weakness/Pain Extremities: No Cyanosis,Clubbing or Edema Integumentary: Skin Intact without Lesions or Rash Psychological: Alert & Oriented X3, Appropriate Mood & Affect Result Diagram: 07/17/182128 Assessment and Plan Problems: (1) care and examination immediately after delivery Status: Acute Assessment & Plan: PPD#2 s/p . Meeting milestones. Desires discharge to home today. Discussed routine expectations. Questions answered. Follow up in clinic in 2wks for check. GILBERTO RIVERA MD Jul 20, 2018 08:12
[2018-07-20] MEDS: DOCUSATE CALCIUM 240 MG CAP PO SCH (09:03)
[2018-07-20 09:40] VITALS: BP 129/72
--- NOTE | 2018-07-20 10:32 | OB/GYN Discharge Summary ---
Discharge Summary Reason for Hosp/Final Diag: (1) care and examination immediately after delivery Status: Acute Hospital Course & Plan: PPD#2 s/p . Meeting milestones. Desires discharge to home today. Discussed routine expectations. Questions answered. Follow up in clinic in 2wks for check. Lates Vital Signs Vital Signs Date Time Temp Pulse Resp B/P (MAP) Pulse Ox O2 Delivery O2 Flow Rate FiO2 07/20/18 09:40 97.8 86 18 129/72 (91) 07/19/18 16:40 96 Room Air Weight (Pounds): 200 Result Diagram: 07/17/182128 Condition: Improved Discharge: Home, Self [facility]dc Meds Active Scripts Tramadol Hcl (TRAMADOL HCL) 50 Mg Tablet, 50 MG PO Q6H PRN for pain, #20 TAB 0 Refills Prov:GILBERTO RIVERA MD 07/19/18 Reported Medications Calcium Carbonate (TUMS) 200 Mg Tab.chew, 200 MG PO, TAB.CHEW 05/18/18 Vit/Iron Fumarate/Fa ( TABLET) 1 Each Tablet, 1 EACH PO 11/28/17 Discontinued Reported Medications Cholecalciferol (Vitamin D3) (VITAMIN D3) 1,000 Unit Tablet, 1000 UNIT PO, TAB 02/07/18 Discontinued Scripts Triamcinolone Acetonide 0.1% Oint 15 Gm Tube (TRIAMCINOLONE ACETONIDE 0.1% 15 GM TUBE) 15 Gm Oint...g., 15 GM TP BID, #1 TUBE 0 Refills Prov:GILBERTO RIVERA MD 06/07/18 Follow up Referrals: CONTRACT LAW SPECIALIST - In Two Weeks @ [facility] [place] with GILBERTO RIVERA MD Discharge Diet: As Tolerates Discharge Activity: Pelvic Rest GILBERTO RIVERA MD Jul 20, 2018 10:31
== END 2018-07-20 13:13 | disposition home or self-care (01) | DRG 807 ==
LOC: OB 20:45 → OBSVTOIN 20:45
PROVIDERS: ADMIT Student in an Organized Health Care Education/Training Program; ATTEND Student in an Organized Health Care Education/Training Program
PROC: 10E0XZZ Delivery of Products of Conception, External Approach (ICD-10-PCS; principal; 2018-07-18)
PROC: 10907ZC Drainage of Amniotic Fluid, Therapeutic from Products of Conception, Via Natural or Artificial Opening (ICD-10-PCS; 2018-07-18)
DX: O99.824 Streptococcus B carrier state complicating childbirth (principal); Z37.0 Single live birth; O77.0 Labor and delivery complicated by meconium in amniotic fluid; O69.81X0 Labor and delivery complicated by cord around neck, without compression, not applicable or unspecified; Z3A.39 39 weeks gestation of pregnancy; Z88.5 Allergy status to narcotic agent; Z88.8 Allergy status to other drugs, medicaments and biological substances
CPT/HCPCS: 36415; 85025; 86703; 86850; 86900; 86901; J2540; J2590; J3010; J3490; J7120; S0020

== ENCOUNTER → 2018-11-17 | Outpatient (CLI) | payer OTHER ==
[2018-07-17 22:00] VITALS: BMI 30.4
[~2018-11-17] MED LIST changes: +MULT1TAB64 PO
== END ==
LOC: LAB 11:45
PROVIDERS: ATTEND Obstetrics & Gynecology
DX: N92.6 Irregular menstruation, unspecified (principal)
CPT/HCPCS: 36415; 84146; 84443

== ENCOUNTER 2018-11-23 00:15 | Observation (INO) | payer OTHER ==
[2018-11-23] VITALS (17 sets, daily range): BP systolic 93–124; BP diastolic 63–80
[~2018-11-23] VITALS: Ht 172.7 cm; Wt 85.3 kg
[2018-11-23] MEDS ORDERED: ONDANSETRON 4 MG/2 ML VIAL ONE (08:03)
[2018-11-23] MEDS ORDERED: PROPOFOL EMUL(*) 10MG/ML 20 ML 20 ML ONE ×2 (08:03→13:01)
[2018-11-23] MEDS ORDERED: METOCLOPRAMIDE 10 MG/2 ML SDV ONE (08:03)
[2018-11-23] MEDS ORDERED: LIDOCAINE MPF 1% 5 ML VIAL ONE (08:03)
[2018-11-23] MEDS ORDERED: DEXAMETHASONE SOD 4 MG/ML VIAL ONE (08:04)
[2018-11-23] MEDS ORDERED: ROCURONIUM BR 10 MG/ML 5 ML SY 5 ML ONE (08:04)
[2018-11-23] MEDS ORDERED: APREPITANT 40 MG CAP PO ONE (09:55)
[2018-11-23] MEDS ORDERED: fentaNYL CITR 250 MCG/5 ML AMP ONE (11:55)
[2018-11-23] MEDS ORDERED: ceFAZolin(*) 1 GM VIAL 1 GM in NS(*) 0.9% 100 ML MINI-BAG 100 ML IVPB ONE (12:00)
[2018-11-23] MEDS ORDERED: PHENAZOPYRIDINE 200 MG TAB PO ONE (12:00)
[2018-11-23] MEDS ORDERED: NORMOSOL R SOLN(*) 1000 ML BAG 1,000 ML IV PRN (12:00)
[2018-11-23] MEDS ORDERED: LIDOCAINE/SOD BICARB 8.4% SYR ID ONE (12:00)
[2018-11-23] MEDS ORDERED: FAMOTIDINE 20 MG TAB PO ONE (12:00)
[2018-11-23] MEDS ORDERED: BUPIV/EPI 0.25% 1:200,000 50ML INFIL ONE (12:17)
[2018-11-23 12:19] LABS: PLATELET COUNT, AUTOMATED 261 K/uL (150-450)
[2018-11-23] MEDS ORDERED: MIDAZOLAM 2 MG/2 ML VIAL IVP PRN (12:30)
[2018-11-23] MEDS ORDERED: MIDAZOLAM 2 MG/2 ML VIAL ONE (12:32)
[2018-11-23] MEDS ORDERED: ACETAMINOPHEN(*)1000 MG/100 ML 100 ML IVPB ONE (12:35)
[2018-11-23] MEDS ORDERED: PROPOFOL(*)1000 MG/100 ML VIAL 100 ML ONE (12:35)
--- NOTE | 2018-11-23 12:41 | NUR ---
PT.GIVEN VERSED. HAD AT LAST SURGERY WITHOUT REACTIONS OR CONCERNS. DR. MEJÍA AWARE.
[2018-11-23] MEDS ORDERED: SUGAMMADEX SOD 200 MG/2 ML SDV ONE (13:06)
[2018-11-23] MEDS ORDERED: WATER STERILE FOR IRRIG 1000ML IR ONE (13:42)
[2018-11-23] MEDS ORDERED: NS 0.9% IRRIGATION 1000ML PLCT IR ONE (13:46)
[2018-11-23] MEDS ORDERED: PROPOFOL EMUL(*) 10MG/ML 20 ML 60 ML ONE (13:46)
[2018-11-23] MEDS ORDERED: KETOROLAC 30 MG/ML VIAL ONE (14:11)
[2018-11-23] MEDS ORDERED: DLR(*) 1000 ML BAG 1,000 ML IV PRN (14:42)
--- NOTE | 2018-11-23 14:42 | Post Operative Note ---
Operative Note - [employer] Operative Day Date: Nov 23, 2018 Time: 14:39 Physicians Surgeon: Aric Makeup Instructor: Baldomero Anesthesia: La ANDRADE Diagnosis Pre-Op Diagnosis: Persistent heavy and irregular bleeding Post-Op Diagnosis: Same Endometriosis Procedure Findings: Endometriosis in posterior cul de sac by left uterosacral Procedure(s): RATLH, right salpingectomy Dx cysto Specimen Removed:(Maybe N/A): Uterus, right fallopian tube Fluids Fluids: IVF: 1700cc UOP: 150cc Estimated Blood Loss: 25cc GILBERTO RIVERA MD Nov 23, 2018 14:42
[2018-11-23] MEDS ORDERED: INFLUENZA VIRUS VAC 0.5ML SYR IM ONE (14:45)
[2018-11-23] MEDS ORDERED: ONDANSETRON 4 MG/2 ML VIAL IV PRN (14:45)
[2018-11-23] MEDS ORDERED: METOCLOPRAMIDE 10 MG/2 ML SDV IV PRN (14:45)
[2018-11-23] MEDS ORDERED: ACETAMINOPHEN 325 MG TAB PO PRN (14:45)
[2018-11-23] MEDS ORDERED: HYDROmorphone HCL 2 MG/ML SDV IVP PRN (14:45)
[2018-11-23] MEDS ORDERED: MAGNESIUM HYDROXIDE* 30ML UDCP PO PRN (14:45)
[2018-11-23] MEDS ORDERED: SIMETHICONE 80 MG CHEW CHEW PRN (14:45)
[2018-11-23] MEDS ORDERED: MEPERIDINE HCL 50 MG/ML SDV 50 MG/ML VIAL ONE (14:59)
[2018-11-23] MEDS ORDERED: HYDR2TAB74 PO (15:12)
[2018-11-23] MEDS ORDERED: IBUP800T37 PO (15:12)
[2018-11-23] MEDS: HYDROmorphone HCL 2 MG TAB PO PRN (16:35)
--- NOTE | 2018-11-23 16:48 | OPERATIVE REPORT 1 ---
EVENT DATE: November 23, 2018 SURGEON: Serina Corbett MD ANESTHESIOLOGIST: Scooby Tovar MD ANESTHESIA: General endotracheal tube. PROFESSIONAL MODEL: Alison Alexandre DO PREOPERATIVE DIAGNOSIS Persistent heavy and irregular bleeding. POSTOPERATIVE DIAGNOSES 1. Persistent heavy and irregular bleeding. 2. Endometriosis. FINDINGS Endometriosis in the posterior cul-de-sac by her left utero-sacral ligament. PROCEDURES PERFORMED 1. Robotic-assisted total laparoscopic hysterectomy with right salpingectomy. 2. Diagnostic cystoscopy. SPECIMENS REMOVED Uterus, cervix, and right fallopian tube. INTRAVENOUS FLUIDS 1700 mL. URINE OUTPUT 150 mL. ESTIMATED BLOOD LOSS 25 mL. INDICATIONS FOR PROCEDURE This patient is a 38-year-old, 5, para 3-0-2-3, who presented four months with complaints of persistent heavy and irregular vaginal bleeding. She had been experiencing these symptoms prior to her most recent . This caused her significant distress. She, therefore, was able to get after multiple attempts with fertility, and after delivery, was again experiencing her heavy and irregular bleeding. She requested a hysterectomy initially; however, we worked towards conservative management options initially. Her symptoms continued to worsen. She had a TSH and prolactin which were within normal limits. She also had a Pap smear and endometrial biopsy, which were benign. Her ultrasound revealed essentially normal anatomy. She was counseled on hormonal versus surgical options. She elected to proceed with definitive management. This was deemed medically necessary given that she had attempted all of her other less invasive options in the past without success. DESCRIPTION OF PROCEDURE The patient was properly identified and taken to the operating room. She was placed under general endotracheal tube anesthesia, placed in the dorsal lithotomy position, and prepped and draped in the usual fashion for a laparoscopic and vaginal procedure. The patient received Ancef preoperatively for a prophylactic antibiotic. Her SCDs were on and functioning at the time of the procedure. A bimanual exam was performed, which revealed an approximately 8 cm anteverted uterus. A right angle retractor was placed anteriorly and a short weighted speculum posteriorly to visualize the cervix, which was grasped with an Allis clamp. The cervix was serially dilated to 6 mm using Hegar dilators. A KP II uterine manipulator was then requested and assembled. The cervix was measured to be able to fit a 3 cm KP Kenneth ring. The Kenneth ring was assembled as well as an 8 cm tip for the KP II. This KP was then introduced, and the tip balloon was insufflated. The uterine manipulator remained in place, and the Kenneth ring was advanced to be flush with the cervix. This was left in place. The pneumo- occluder was then insufflated. A Jackson catheter was then placed to drain the bladder. The patient was then placed in the supine position, and attention was turned to the laparoscopic portion of the procedure. The supraumbilical region was infiltrated with 0.25% Marcaine with epinephrine. An 8 mm incision was made supraumbilically. The [facility] laparoscope was then introduced under direct visualization with an 8 mm trocar through this incision. Insufflation of the abdomen was then performed. Four additional trocars were inserted under direct visualization after infiltrating 0.25% Marcaine with epinephrine. There were 8 mm trocars inserted on the right side and an 8 mm on the left, followed by an 11 mm on the most left lateral incision. These ports were all advanced under direct visualization. The patient was placed in the Trendelenburg position. The da Wilian robotic system was prepped for docking. It was brought in an aligned. The endoscope port was docked. The endoscope was then introduced, and targeting was performed on the uterus. The remaining arms were then docked without difficulty. The fenestrated bipolar grasper, ProGrasp and the monopolar scissors was then advanced under direct visualization into the pelvis, and energy was connected. At this time, I was able to break sterile attire and sit at the console to initiate the hysterectomy. Examination of the pelvis revealed multiple hemosiderin deposits within the posterior cul-de-sac, particularly along the left uterosacral ligament. This was consistent with endometriosis. Examination of the abdomen revealed a normal upper abdomen. The patient's left fallopian tube was surgically absent. The right fallopian tube appeared within normal limits, as did the ovaries. In order to initiate the salpingectomy on the right side, the patient's right fallopian tube placed on gentle traction, and the mesosalpinx was cauterized and transected until the entire tube was able to be transected. This tube was delivered through the accessory port without difficulty. The right utero-ovarian ligament was unable to be cauterized and transected, followed by cautery and transection of the round ligament. This allowed for the broad ligament on the right side to be opened. The anterior leaflet of the broad ligament was brought across the midline above the colpotomy ring in order to separate the vesicouterine peritoneum. The posterior peritoneum was then dissected further off the uterus on the right side down to the cervix. Uterine vessels were then identified, cauterized, and transected in order to allow the colpotomy to be performed. Attention was then turned to the patient's left side where the left utero-ovarian ligament was cauterized and transected, followed by the round ligament. This allowed for opening of the broad ligament, and the anterior leaflet was brought down to the midline where the prior vesicouterine peritoneum on the other side had been dissected. The posterior leaflet was then also brought down to the level of the colpotomy ring. The uterine vessels were then visualized and cauterized. These were taken down with monopolar scissors to the level where the colpotomy would need to be performed. At this time, the bladder flap was further delineated and brought down without difficulty to a safe area in order to allow for closure of the vaginal cuff later. The colpotomy was then initiated anteriorly with identification of the colpotomy ring. The colpotomy was then continued in a circumferential fashion until the entire colpotomy was completed. The uterus was then delivered into the vagina and left in place to allow for maintenance of the pneumoperitoneum. The cuff was copiously irrigated and noted to be hemostatic. An 0 Vicryl suture was then utilized in a [id number] manner to reapproximate the tissue on the left corner. A V-Loc suture was then initiated on the right side to reapproximate the right corner, following to the left with an unmarked suture. Once this was completely closed, the suture was followed backwards with two additional sutures towards the right. Once this was completed, copious irrigation was again performed, revealed adequate hemostasis. At this time, the uterus was able to be removed fully from the vagina and sent to Pathology. Using the Arash-Bartolo device, the fascia of the assistant manager port was then closed using an 0 Vicryl suture with robotic assistance. All robotic arms were undocked, and the instruments were removed. The pneumoperitoneum was relieved, and the 11 mm fascia was tied down. All five skin incisions were reapproximated using a 4-0 Monocryl and closed with Dermabond. The Jackson catheter was removed from the bladder. A cystoscope was assembled and introduced through the urethra and into the bladder under direct visualization. The entire bladder was evaluated and noted to be normal without any lesions or sutures. Bilateral ureteral jets were noted with Pyridium-stained urine. The cystoscope was then removed, and the Jackson catheter was replaced. The patient tolerated this procedure well and recovered in the post-anesthesia care unit. All sponge, needle, and instrument counts were correct at the end of this procedure. GERTRUDIS
[2018-11-23] MEDS ORDERED: KETOROLAC 30 MG/ML VIAL IVP ONE (18:45)
[2018-11-23] MEDS: DOCUSATE CALCIUM 240 MG CAP PO SCH (20:43)
[2018-11-23] MEDS: FAMOTIDINE 20 MG TAB PO SCH (20:44)
--- NOTE | 2018-11-23 21:27 | OB/GYN Progress Note ---
OB Subjective Progress Notes Subjective Pt was doing very well this afternoon but did not get out of bed. She was just given IV Dilaudid as opposed to po Dilaudid and is feeling suddenly nauseous, lightheaded and near fainting. She has been given wet wash cloth, Zofran and a fan to help her. She had been tolerating po and has good urine output. Jackson still in. OB Objective Physical Exam Vital Signs Date Time Temp Pulse Resp B/P (MAP) Pulse Ox O2 Delivery O2 Flow Rate FiO2 11/23/18 19:30 98.3 80 114/69 (84) 93 Nasal Cannula 1.0 11/23/18 17:45 18 General Appearance: Alert/Awake/No Acute Distress Eyes: Normal Extraocular Movement & Vison Cardiovascular: Normal Rhythm & Peripheral Pulses Respiratory: No Respiratory Distress, Clear to Auscultation Abdomen: Soft, Non-Tender, Non-Distended Incision: Clean, Dry, Intact, Dermabond Musculoskeletal: No Weakness/Pain Extremities: No Cyanosis,Clubbing or Edema Integumentary: Skin Intact without Lesions or Rash Psychological: Alert & Oriented X3, Appropriate Mood & Affect Result Diagram: 11/21/18 1202 Assessment and Plan Problems: (1) History of robot-assisted laparoscopic hysterectomy Assessment & Plan: POD#0 s/p RATLH/right salpingectomy and dx cysto. She has been doing well but is currently diaphoretic due to IV Dilaudid. Will d/c IV and move to only oral medications. Otherwise, routine orders. GILBERTO RIVERA MD Nov 23, 2018 21:27
[2018-11-24] MEDS: IBUPROFEN 800 MG TAB PO PRN ×3 (01:01→17:30)
[2018-11-24 03:05] VITALS: BP 93/64
[2018-11-24 06:05] LABS: PLATELET COUNT, AUTOMATED 262 K/uL (150-450)
[2018-11-24] MEDS: HYDROmorphone HCL 2 MG TAB PO PRN (06:12)
[2018-11-24 07:05] VITALS: BP 107/70
[2018-11-24 08:03] VITALS: Ht 172.7 cm; Wt 85.3 kg
--- NOTE | 2018-11-24 08:16 | OB/GYN Progress Note ---
OB Subjective Progress Notes Subjective Doing well. Pain controlled with oral medications. Tolerating regular diet. Ambulating. Voiding. Normal lochia. No preeclampsia symptoms. OB Objective Physical Exam Vital Signs Date Time Temp Pulse Resp B/P (MAP) Pulse Ox O2 Delivery O2 Flow Rate FiO2 11/24/18 07:31 97 11/24/18 07:05 98.2 68 16 107/70 (82) Room Air 11/23/18 19:30 1.0 Intake and Output 11/24/18 07:01 Intake Total 4202 ml Output Total 2550 ml Balance 1652 ml Intake Oral 175 ml IV Total 2127 ml Other 1900 ml Output Urine Total 2450 ml Estimated Blood Loss 100 ml General Appearance: Alert/Awake/No Acute Distress Eyes: Normal Extraocular Movement & Vison Cardiovascular: Normal Rhythm & Peripheral Pulses Respiratory: No Respiratory Distress, Clear to Auscultation Abdomen: Soft, Non-Tender, Non-Distended Incision: Clean, Dry, Intact, Dermabond Musculoskeletal: No Weakness/Pain Extremities: No Cyanosis,Clubbing or Edema Integumentary: Skin Intact without Lesions or Rash Psychological: Alert & Oriented X3, Appropriate Mood & Affect Result Diagram: 11/24/18 0553 Assessment and Plan Problems: (1) History of robot-assisted laparoscopic hysterectomy Assessment & Plan: POD#1 s/p RATLH/right salpingectomy and dx cysto. Meeting milestones. Desires discharge to home today. Discussed routine postoperative expectations. Questions answered. Follow up in clinic in 1-2wks for postop check. She has developed a rash on her abdomen due to adhesive. She will try Zyrtec at home and go home with clobetasol ointment. GILBERTO RIVERA MD Nov 24, 2018 08:16
[2018-11-24] MEDS ORDERED: CLOB15OI16 TP (08:19)
--- NOTE | 2018-11-24 08:24 | OB/GYN Discharge Summary ---
Discharge Summary Reason for Hosp/Final Diag: (1) History of robot-assisted laparoscopic hysterectomy Hospital Course & Plan: POD#1 s/p RATLH/right salpingectomy and dx cysto. Meeting milestones. Desires discharge to home today. Discussed routine postoperative expectations. Questions answered. Follow up in clinic in 1-2wks for postop check. She has developed a rash on her abdomen due to adhesive. She will try Zyrtec at home and go home with clobetasol ointment. Lates Vital Signs Vital Signs Date Time Temp Pulse Resp B/P (MAP) Pulse Ox O2 Delivery O2 Flow Rate FiO2 11/24/18 07:31 97 11/24/18 07:05 98.2 68 16 107/70 (82) Room Air 11/23/18 19:30 1.0 Weight (Pounds): 188 Result Diagram: 11/24/18 0553 Condition: Improved Discharge: Home, Self Skilled Nursing Meds Active Scripts Clobetasol Propionate (CLOBETASOL PROPIONATE) 15 Gm Oint...g., 1 KAITLYN TP BID, #1 TUBE 0 Refills Prov:GILBERTO RIVERA MD 11/24/18 Hydromorphone Hcl (DILAUDID) 2 Mg Tablet, 0.5-1 TAB PO Q6H PRN for pain, #20 TAB 0 Refills Prov:GILBERTO RIVERA MD 11/23/18 Reported Medications Multivitamin (MULTI VITAMIN DAILY) 1 Each Tablet, 1 EACH PO QDAY 11/21/18 Follow up Referrals: DRY PAN OPERATOR - In Two Weeks @ [facility] [place] with GILBERTO RIVERA MD Discharge Diet: As Tolerates Discharge Activity: No Heavy Lifting > 10lb, Pelvic Rest GILBERTO RIVERA MD Nov 24, 2018 08:24
[2018-11-24] MEDS ORDERED: CETIRIZINE HCL 10 MG TAB PO ONE (08:40)
[2018-11-24] MEDS ORDERED: CLOBETASOL PROPIONATE 15 GM TUBE TOP SCH (09:00)
[2018-11-24] MEDS: FAMOTIDINE 20 MG TAB PO SCH (09:30)
[2018-11-24] MEDS: DOCUSATE CALCIUM 240 MG CAP PO SCH (09:33)
[2018-11-24 13:45] VITALS: BP 103/67
== END 2018-11-24 08:38 | disposition home or self-care (01) ==
LOC: OR 00:15 → PED 16:10
PROVIDERS: ADMIT Obstetrics & Gynecology; ATTEND Obstetrics & Gynecology
DX: N80.0 Endometriosis of uterus (principal)
CPT/HCPCS: 36415; 58575; 84703; 85025; 88302; 88307; G0378; J0131; J0690; J1100; J1170; J1885; J2001; J2175; J2250; J2405; J2704; J2765; J3010; J8501; S2900